=== PATIENT | male | born 1995 | race Caucasian/White ===

== ENCOUNTER 2016-11-04 19:58 | Emergency (ER) | payer MEDICAID ==
[2016-11-04 20:42] LABS: BASOPHIL % 0.2 % (0-2)
[2016-11-04 20:43] LABS: PLATELET COUNT 403 x10^3mcL (130-400)
[2016-11-04 20:45] LABS: CALCIUM 8.6 mg/dL (8.5-10.1); CARBON DIOXIDE 24.3 mmol/L (21-32); CHLORIDE SERUM 98 mmol/L (98-107); CREATININE SERUM 1.2 mg/dL (0.7-1.3); GFR1 > 60 mL/min; GLUCOSE SERUM 154 mg/dL (74-106); POTASSIUM SERUM 3.8 mmol/L (3.5-5.1); SODIUM SERUM 135 mmol/L (136-145)
[2016-11-04 20:49] LABS: ALKALINE PHOSPHATASE 78 U/L (46-116); ALT/SGPT 21 U/L (16-63); AMYLASE 70 U/L (25-115); AST/SGOT 19 U/L (15-37); BILIRUBIN TOTAL 0.3 mg/dL (0.20-1.00); LIPASE 103 IU/L (73-393); TOTAL PROTEIN, SERUM 7.8 g/dL (6.4-8.2)
[2016-11-04 20:51] LABS: ALBUMIN 2.9 g/dL (3.4-5.0)
[2016-11-04 21:30] VITALS: BP 115/71
== END 2016-11-04 21:30 | disposition home or self-care (01) ==
LOC: ED 19:58
PROVIDERS: Emergency Medicine
DX: R10.9 Unspecified abdominal pain (principal); R11.2 Nausea with vomiting, unspecified; R19.7 Diarrhea, unspecified; R05 Cough; R09.81 Nasal congestion; Z79.899 Other long term (current) drug therapy
CPT/HCPCS: 83880; J2405; J7030; Q0162